=== PATIENT | male | born 1950 | race Hispanic/Latino ===

== ENCOUNTER 2022-04-19 16:43 | Emergency (ER) | payer OTHER ==
--- OUTSIDE RECORDS SUMMARY | 2022-04-19 16:47 | XMS REPORT | Continuity of Care Document ---
:1950 Author Organization [facility] t Address [address] [place] [address] Care Team Providers Name Role Phone Lew Ibarra Attending Clinician Unavailable Steve Zamudio Attending Clinician Unavailable Gregorio Estrella Attending Clinician Unavailable A_Byrd Attending Clinician Unavailable CAITLYN BEST Attending Clinician Unavailable KEMAL KUNZ Attending Clinician Unavailable BARBI SCOTT Attending Clinician Unavailable Zuniga_S Attending Clinician Unavailable A_Byrd Admitting Clinician Unavailable Zuniga_S Admitting Clinician Unavailable Payers Payer Name Policy Type Policy Number Effective Date Expiration Date S ource [facility] [id number] (MEDICARE REPLACEMENT/ADVANTAGE - PPO) Problems Condition Condition Condition Status Onset Resolution Last Treating Co mments Source Name Details Category Date Date Treatment Clinician Date Hiatal Hiatal Problem Active 2021-04 [place] hernia Hernia 2-29 da 00:00: Medical 00 Group Pain in Pain in Problem Active [facility] right Right 9-14 da thumb Thumb 00:00: Medical Group Pain in Pain in Problem Active [facility] left thumb Left Thumb 9-14 da 00:00: Medical Group Benign Benign Problem Active [place] essential Essential 4-28 da hypertensi Hypertensi 00:00: [place] dical on on Group Chronic Chronic Problem Active [place] cough Cough 7-31 da 00:00: Medical Group Urgent Urgent Problem Active [place] desire to Desire to 7-31 da urinate Urinate 00:00: Medical Group Abdominal Abdominal Problem Active [facility] pain Pain 7-31 da 00:00: Medical Group Influenza Influenza Problem Active [facility] 2-08 da 00:00: Medical 00 Group Benign Benign Problem Active [place] hypertensi Hypertensi da on on Medical Group Osteoarthr Osteoarthr Problem Active M [facility] itis of itis of da knee [facility]nee [facility] Moderate Moderate Problem Active [place] [facility] effusion Effusion da in knee in [facility] Right Right Problem Active [place] lower Lower da quadrant [facility] Med[facility] l pain Pain Group Knee pain Knee Pain Problem Active [facility] Primary Primary Problem Active [facility] insomnia Insomnia [facility] Glaucoma Glaucoma Problem Active [facility] Blindness Blindness Problem Active [facility] [place] of [facility] Allergies, Adverse Reactions, Alerts This patient has no known allergies or adverse reactions. Social History Smoking Status Start Date Stop Date Source Never Smoker [facility] Medications Ordered Filled Start Stop Current Ordering Indication Dosage Frequency Signature Comments Components Source Medication Medication Date Date Medication? Clinician (SIG) Name Name Aspir-81 No [facility] Combigan Combigan No Combigan [facility] [place] 0.2 %-0.5 % 0.2 %-0.5 % 0.2 %-0.5 da eye drops eye drops % eye Medi tom INSTILL 1 INSTILL 1 drops Grou p DROP INTO DROP INTO INSTILL 1 AFFECTED AFFECTED DROP INTO EYE(S) BY EYE(S) BY AFFECTED OPHTHALMIC OPHTHALMIC EYE(S) BY ROUTE EVERY ROUTE EVERY OPHTHALMIC 12 HOURS 12 HOURS ROUTE EVERY 12 HOURS diclofenac diclofenac No diclofenac [place] 1 % topical 1 % topical 1 % d a gel APPLY 2 gel APPLY 2 topical Medical GRAMS TO GRAMS TO gel APPLY Gr oup THE THE 2 GRAMS TO AFFECTED AFFECTED THE AREA(S) BY AREA(S) BY AFFECTED TOPICAL TOPICAL AREA(S) BY ROUTE 4 ROUTE 4 TOPICAL TIMES PER TIMES PER ROUTE 4 DAY DAY TIMES PER DAY diclofenac diclofenac No 1 BID diclofenac [place] sodium 75 sodium 75 sodium 75 da mg mg mg Medical tablet,kacie tablet,kacie tablet,del Group yed release yed release ayed Take 1 Take 1 release tablet tablet Take 1 twice a day twice a day tablet by oral by oral twice a route for route for day by 10 days. 10 days. oral route for 10 days. hydrochloro hydrochloro No hydrochlor [facility] thiazide 25 thiazide 25 othiazide da mg tablet mg tablet 25 mg Medi tom TAKE ONE TAKE ONE tablet Group (1) (1) TAKE ONE TABLET(S) TABLET(S) (1) BY MOUTH BY MOUTH TABLET(S) DAILY FOR DAILY FOR BY MOUTH HYPERTENSIO HYPERTENSIO DAILY FOR N. N. HYPERTENSI ON. losartan losartan No losartan [place] 100 mg 100 mg 100 mg da tablet TAKE tablet TAKE tablet Medical 1 TABLET BY 1 TABLET BY TAKE 1 Group MOUTH ONCE MOUTH ONCE TABLET BY DAILY DAILY MOUTH ONCE DAILY tamsulosin tamsulosin No tamsulosin [place] 0.4 mg 0.4 mg 0.4 mg da capsule capsule capsule Medica l TAKE 1 TAKE 1 TAKE 1 Group CAPSULE BY CAPSULE BY CAPSULE BY MOUTH EVERY MOUTH EVERY MOUTH DAY DAY EVERY DAY Schedule Schedule Schedule appt. with appt. with appt. with Dr. Bertha Stone for next for next for next refill refill refill amoxicillin amoxicillin No amoxicilli [place] 500 500 n 500 da mg-potassiu mg-potassiu mg-potassi Medical m m um Group clavulanate clavulanate clavulanat 125 mg 125 mg e 125 mg tablet TAKE tablet TAKE tablet 1 TABLET BY 1 TABLET BY TAKE 1 MOUTH TWICE MOUTH TWICE TABLET BY DAILY FOR DAILY FOR MOUTH UTI UTI TWICE DAILY FOR UTI Aspir-81 Aspir-81 No Aspir-81 [place] [facility] atorvastati atorvastati No atorvastat [place] n 40 mg n 40 mg in 40 mg da tablet TAKE tablet TAKE tablet Medical 1 TABLET BY 1 TABLET BY TAKE 1 Group MOUTH EVERY MOUTH EVERY TABLET BY DAY DAY MOUTH EVERY DAY brimonidine brimonidine No brimonidin [place] 0.2 0.2 e 0.2 da %-timolol %-timolol %-timolol Medical 0.5 % eye 0.5 % eye 0.5 % eye Group drops drops drops INSTILL 1 INSTILL 1 INSTILL 1 DROP IN DROP IN DROP IN RIGHT EYE RIGHT EYE RIGHT EYE TWICE DAILY TWICE DAILY TWICE DAILY diclofenac diclofenac No diclofenac [place] 1 % topical 1 % topical 1 % d a gel APPLY 2 gel APPLY 2 topical Medical GRAMS TO GRAMS TO gel APPLY Gr oup THE THE 2 GRAMS TO AFFECTED AFFECTED THE AREA(S) BY AREA(S) BY AFFECTED TOPICAL TOPICAL AREA(S) BY ROUTE 4 ROUTE 4 TOPICAL TIMES PER TIMES PER ROUTE 4 DAY DAY TIMES PER DAY diclofenac diclofenac No diclofenac [place] sodium 75 sodium 75 sodium 75 da mg mg mg Medical tablet,kacie tablet,kacie tablet,del Group yed release yed release ayed TAKE 1 TAKE 1 release TABLET BY TABLET BY TAKE 1 MOUTH TWICE MOUTH TWICE TABLET BY DAILY FOR DAILY FOR MOUTH 10 DAYS 10 DAYS TWICE DAILY FOR 10 DAYS losartan losartan No losartan [facility] [place] 100 mg 100 mg 100 mg da tablet TAKE tablet TAKE tablet Medical 1 TABLET BY 1 TABLET BY TAKE 1 Group MOUTH EVERY MOUTH EVERY TABLET BY DAY DAY MOUTH EVERY DAY ondansetron ondansetron No ondansetro [place] 4 mg 4 mg n 4 mg da disintegrat disintegrat disintegra Medical ing tablet ing tablet tin [place] up DISSOLVE 1 DISSOLVE 1 tablet TABLET ON TABLET ON DISSOLVE 1 THE TONGUE THE TONGUE TABLET ON EVERY 6 EVERY 6 THE TONGUE HOURS HOURS EVERY 6 NEEDED FOR NEEDED FOR HOURS NAUSEA OR NAUSEA OR NEEDED FOR VOMITING VOMITING NAUSEA OR VOMITING pantoprazol pantoprazol No pantoprazo [place] e 40 mg e 40 mg le 40 mg da tablet,kacie tablet,kacie tablet,del Medical yed release yed release ayed G roup release tamsulosin tamsulosin No 1capsul Q1D tamsulosin [facility] 0.4 mg 0.4 mg e(s) 0.4 mg da capsule capsule capsule Medica l Take 1 Take 1 Take 1 Group capsule capsule capsule every day every day every day by oral by oral by oral route. route. route. Immunizations Ordered Immunization Filled Immunization Date Status Commen ts Source Name Name influenza, influenza, 2015-03-12 Completed [place] injectable, injectable, 17:39:33 Medical Grou p quadrivalent, quadrivalent, preservative free preservative free influenza, influenza, 2015-03-12 Completed [place] injectable, injectable, 17:39:33 Medical Grou p quadrivalent, quadrivalent, preservative free preservative free Vital Signs Vital Name Observation Time Observation Value Comments Source BP Diastolic 2022-04-10 00:00:00 82 mm[Hg] [facility] Height 2022-04-10 00:00:00 66 [in_i] [facility] BMI (Body Mass 2022-04-10 00:00:00 35 kg/m2 [facility] Index) Group BP Systolic 2022-04-10 00:00:00 150 mm[Hg] [facility] Body Weight 2022-04-10 00:00:00 3470.4 [oz_av[facility] BP Diastolic 2021-12-25 00:00:00 68 mm[Hg] [facility] Height 2021-12-25 00:00:00 66 [in_i] [facility] BMI (Body Mass 2021-12-25 00:00:00 37 kg/m2 [facility] Index) Group BP Systolic 2021-12-25 00:00:00 154 mm[Hg] [facility] Body Weight 2021-12-25 00:00:00 3664 [oz_av] [facility] BP Diastolic 2021-08-08 00:00:00 83 mm[Hg] [facility] Height 2021-08-08 00:00:00 66 [in_i] [facility] BMI (Body Mass 2021-08-08 00:00:00 37.2 kg/m2 [facility] Index) Group BP Systolic 2021-08-08 00:00:00 180 mm[Hg] [facility] Body Weight 2021-08-08 00:00:00 3684.8 [oz_av] [facility] Procedures Procedure Date / Time Performing Clinician Source Performed XR, thumb 2021-12-25 00:00:00 [facility] Colonoscopy W/lesion 2015-04-13 00:00:00 [facility] Appendectomy [facility] Plan of Care Planned Activity Planned Date Details Comments Source Diagnostic Test 2021-12-25 uric acid, serum [facility] Pending 00:00:00 or plasma [code = Group uric acid, serum or plasma] Encounters Start End Encounter Admission Attending Care Care Encounter Source Date/Time Date/Time Type Type Clinicians Facility Department ID 2022-04-19 2022-04-19 Emergency ER Stacey, [facility] [id number] [place] 10:16:00 15:02:00 Lew -[id number] [facility] 2022-04-18 2022-04-18 Outpatient MITA Zamudio, [facility] [id number] [place] 11:08:00 11:08:00 Steve -[id number] [facility] 2022-04-17 2022-04-17 Outpatient MITA Estrella, [facility] [id number] [place] 15:15:00 15:15:00 Gregorio -[id number] [facility] 2022-04-10 2022-04-10 [facility] [id number] [place] 00:00:00 00:00:00 1229 [facility] 2022-04-10 2022-04-10 Lupe Urbina [facility] [place] - [id number] [facility] 00:00:00 00:00:00 MD Bertha: [facility] hernández [address] [place] [address] [facility] [address], [place] [address] , Ph. 2022-04-09 2022-04-09 Emergency E [facility] [address] [facility] 08:21:00 14:34:00 CAITLYN 2022-04-07 2022-04-07 Emergency ER KUNZ, [facility] [id number] [place] 09:42:00 14:36:00 ADIANES -[id number] [facility] 2022-04-04 2022-04-04 Emergency ER SONIA, [facility] [id number] [place] 20:27:00 22:21:00 BARBI -[id number] [facility] 2021-12-26 2021-12-26 Outpatient Zuniga_S [facility] [id number]- [id number] [place] 00:00:00 00:00:00 1228 [facility] 2021-12-25 2021-12-25 Outpatient Zuniga_S [facility] [id number]- 2021 [place] 00:00:00 00:00:00 0914 [facility] 2021-12-25 2021-12-25 Gema [facility] [place] - [id number] [facility] 00:00:00 00:00:00 Discovery edgar Farley RIB CHOPPER-C: [address] [facility] - [address] [place] [address] , Ph. 2021-08-08 2021-08-08 Outpatient A_Byrd [facility] [id number] [place] 03:07:00 03:07:00 0428 [facility] 2021-08-08 2021-08-08 Lupe Urbina [facility] [place] - [id number] M [facility] 00:00:00 00:00:00 MD Bertha: [facility] hernández [address] [facility] - [address] [place] [address] , Ph. 2021-08-07 2021-08-07 Outpatient A_Byrd [facility] [id number] [place] 09:40:00 09:40:00 0427 [facility] Results Test Description Test Time Test Comments Results Result Comments Source Comprehensive metabolic 2000 panel - Serum or Plasma 2021-07 01:10:00 Test Item Value Reference Range Interpretation Comme nts Glucose [Mass/volume] in Serum or Plasma (test code = 93 mg/dL 82-115 2345-7) Urea nitrogen [Mass/volume] in Serum or Plasma (test code = 12 mg/d L 8-23 3094-0) osmolality calculated,serum (test code = osmolality 270 mOsm/kg 28 0-300 L calculated,serum) creatinine (test code = creatinine) 0.86 mg/dL 0.70-1.20 glomerular filtration rate (test code = glomerular >60.00 filtration rate) Urea nitrogen/Creatinine [Mass Ratio] in Serum or Plasma 14.0 12.0-20.0 (test code = 3097-3) sodium level (test code = sodium level) 135 mmol/L 135-145 potassium level (test code = potassium level) 4.1 mmol/L 3.5-5.2 chloride level (test code = chloride level) 101 mmol/L 98-108 CO2 (test code = CO2) 25 mmol/L 21-32 anion gap (test code = anion gap) 13.1 mEq/L 12.0-20.0 calcium level (test code = calcium level) 9.0 mg/dL 8.8-10.2 total protein (test code = total protein) 7.0 g/dL 6.6-8.7 albumin (test code = albumin) 3.9 g/dL 3.5-5.2 globulin (test code = globulin) 3.1 g/dL 1.5-4.5 A/G ratio (test code = A/G ratio) 1.3 >1.0 bilirubin,total (test code = bilirubin,total) 0.6 mg/dL 0.0-1.2 AST/SGOT (test code = AST/SGOT) 16 U/L 15-40 Alanine aminotransferase [Enzymatic activity/volume] in 17 U/L 0-41 Serum or Plasma (test code = 1742-6) Alkaline phosphatase [Enzymatic activity/volume] in Serum 61 U/L 40-130 or Plasma (test code = 6768-6) [facility] W Auto Differential panel - [id number] 00:00:00 Test Item Value Reference Range Interpretation Comments white blood count (test code = 5.7 K/uL 4.0-12.3 white blood count) red blood count (test code = red 4.85 M/uL 3.80-5.80 blood count) hemoglobin (test code = 15.3 g/dL 11.7-17.2 hemoglobin) hematocrit (test code = 44.9 % 35.0-51.0 hematocrit) MCV [Entitic volume] (test code = 92.6 fL 83.0-100.0 78880-0) mean corpuscular hemoglobin (test 31.5 pg 26.8-33.4 code = mean corpuscular hemoglobin) mean corpuscular HGB conc (test 34.1 g/dL 30.0-35.0 code = mean corpuscular HGB conc) red cell distribution width (test 12.7 % 12.0-14.0 code = red cell distribution width) platelet count (test code = 207 K/uL 175-450 platelet count) mean platelet volume (test code = 10.0 fL 9.4-12.6 mean platelet volume) Segmented neutrophils/100 49.2 % 44.7-82.4 leukocytes in Blood (test code = 72164-3) Immature granulocytes [#/volume] 0.02 K/uL 0.00-0.03 in Blood (test code = 25973-3) lymphocyte% (test code = 38.0 % 10.0-50.0 lymphocyte%) mono % (test code = mono %) 7.7 % 3.9-13.4 eos % (test code = eos %) 4.2 % 0.0-6.4 Basophils/100 leukocytes in 0.5 % 0.2-1.2 Specimen (test code = 66283-9) Band form neutrophils [#/volume] 2.81 K/uL 1.78-5.38 in Blood (test code = 77292-8) Lymphocytes [#/volume] in Specimen 2.17 K/uL 1.32-3.57 by Automated count (test code = 12230-1) mono # (test code = mono #) 0.44 K/uL 0.30-0.82 eos # (test code = eos #) 0.24 K/uL 0.04-0.54 basophil # (test code = basophil 0.03 K/uL 0.01-0.08 #) NRBC% (test code = NRBC%) 0 /100 WBC 0-0.2 NRBC# (test code = NRBC#) 0 K/uL [facility], method unspecified - [id number] 00:00:00NeutrophilsBandLymphocyteAtypical LymphMonocyteEosinophilBasophilMetamyelocyteMyelocytePromyelocyteBlastsNucleated Red Blood CellDifferential CommentAbs Neutrophil Count (Man)Abs Lymph Count (Man)Abs Monocyte Count (Man)Abs Eosinophil Count (Man)Abs Basophil Count (Man)Platelet EstimatePlatelet Morphol ogyHypochromasiaPoikilocytosisAnisocytosisMicrocytosisMacrocytosisSpherocyteTarg et CellsTear Drop CellsOvalocytesStomatocyteToxic GranulationBurr CellsAcanthocytesHypersegmented PolysRouleauChoctaw Health Centerltrop T 2021-08-04 00:00:00 Test Item Value Reference Range Interpretation Comments Troponin T.cardiac [Presence] in Blood <0.011 0.000-0.011 (test code = 76878-4) [facility]
--- NOTE | 2022-04-19 17:32 | RAD REPORT ---
EXAM DESCRIPTION: RAD - Chest Single View - 04/19/2022 5:25 pm CLINICAL HISTORY: CHEST PAIN COMPARISON: No comparisons FINDINGS: Lines: None. Lungs: No evidence of edema or pneumonia. Pleural: No significant pleural effusions or pneumothorax. Cardiac: The heart size is within normal limits. Mediastinum: Within normal limits. Bones: No acute fractures. Other: None IMPRESSION: No acute cardiopulmonary disease.
[2022-04-19 18:00] LABS: Absolute Lymphocytes (CBC) 1.7 K/uL (0.7-4.9); Hematocrit 38.4 % (39.6-49.0); Lymphocytes % 16.1 % (15.3-44.8); MPV 7.4 fL (7.6-11.3); Protime INR 1.17; RBC Red Blood Cell Count 4.17 M/uL (4.33-5.43)
[2022-04-19 18:32] LABS: Albumin 2.8 g/dL (3.4-5.0); Bilirubin Direct 0.3 mg/dL (0-0.2); Bilirubin Total 0.7 mg/dL (0.2-1.0); Magnesium 2.2 mg/dL (1.6-2.4); Potassium 3.7 mmol/L (3.5-5.1); Protein, Total 7.7 g/dL (6.4-8.2); Troponin High Sensitivity 8.4 pg/mL (<58.9)
[2022-04-19] MEDS ORDERED: MAGNES/ALUMIN/SIMET 30ML UCUP ONE (19:12)
[2022-04-19] MEDS ORDERED: LIDOCAINE VISCOUS 2% SOLN 15 ML UDC ONE (19:12)
--- NOTE | 2022-04-19 19:28 | RAD REPORT ---
EXAM DESCRIPTION: CTAngio Aorta For Dissection - 04/19/2022 7:05 pm CLINICAL HISTORY: chest pain, abdominal pain, back pain, COMPARISON: No comparisons TECHNIQUE: CTA of the chest, abdomen, and pelvis was performed with IV contrast. MIPs reconstruction s were performed. All CT scans are performed using dose optimization technique as appropriate and may include automated exposure control or mA/KV adjustment according to patient size. FINDINGS: Thorax: Chest Wall: No abnormal mass Lungs: No acute abnormality. Pleura: No effusions or pneumothorax. Karly/Mediastinum: No lymphadenopathy. Aorta/Pulmonary Arteries: Saccular dilatation arising from the cul portion of the aortic arch consist ent with a pseudoaneurysm. This has a wide neck measures approximately 2.8 x 1.5 cm. It is partially calcified. Heart: Normal size. Coronary artery calcifications. Abdomen/Pelvis: Liver: Small hypervascular focus in the hepatic dome may represent a small flash fill hemangioma. Hep atic steatosis Biliary: No biliary ductal dilatation. Stomach: No significant focal abnormality. Duodenum: No significant focal abnormality. Pancreas: No significant abnormality. Spleen: No significant abnormality. Adrenal: No suspicious lesions. Kidney/ureter: No hydronephrosis. No renal calculi. Left lower pole renal cyst. Retroperitoneum: No retroperitoneal adenopathy. Vascular: See aorta above. Moderately calcified abdominal aorta. No abdominal aortic aneurysm. Bowel: No significant focal abnormality. Peritoneum: No ascites or free air. Small fat containing inguinal hernias. Bladder: Grossly unremarkable. Reproductive: Mild prostatomegaly. Bones: No acute fracture. Other: n/a IMPRESSION: 1. Saccular dilatation rising from the caudal aspect of the aortic arch consistent with a posttraumatic pseudoaneurysm, probably chronic. While no evidence of rupture, chest/back pain could indicate an unstable lesion. Recommend urgent vascular surgery consultation. Discussed with Megan carrasquillo by Dr. Tovar at 1921 on 04/19/22. 2. No other acute findings identified.
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
--- NOTE | 2022-04-19 20:04 | ER ---
Nurse's Notes [facility] Name: Dejon Lopez Age: 71 yrs Sex: Male : 1950 Arrival Date: 04/19/2022 Time: 16:44 Bed 8 Private MD: Gregorio Estrella Diagnosis: Thoracic aortic aneurysm, without rupture;Chest pain, unspecified Presentation: 04/19 16:58 Chief complaint: Spouse and/or significant other states: pt has been dx with a hiatal vg1 hernia about 1.5 weeks ago. Pt C/O of CP and back pain and epigastric pain x 2 weeks, stated "a little bit of SOB". States nausea, denies vomiting. Coronavirus screen: Vaccine status: Patient reports being unvaccinated. Client denies travel out of the [place] in the last 14 days. Ebola Screen: Patient negative for fever greater than or equal to 101.5 degrees Fahrenheit, and additional compatible Ebola Virus Disease symptoms. Initial Sepsis Screen: Does the patient meet any 2 criteria? No. Patient's initial sepsis screen is negative. Does the patient have a suspected source of infection? No. Patient's initial sepsis screen is negative. Risk Assessment: Do you want to hurt yourself or someone else? Patient reports no desire to harm self or others. Onset of symptoms was April 05, 2022. 16:58 Method Of Arrival: Ambulatory vg1 16:58 Acuity: RADHA 3 vg1 Triage Assessment: 17:01 General: Appears uncomfortable, Behavior is calm, cooperative. Pain: Complains of pain vg1 in back, chest and epigastric area Pain currently is 9 out of 10 on a pain scale. Cardiovascular: Patient's skin is warm and dry. GI: Reports nausea, Patient currently denies vomiting. Historical: - Allergies: 17:01 No Known Allergies; vg1 - Home Meds: 17:01 losartan oral [Active]; atorvastatin oral [Active]; Probiotics [Active]; vg1 - PMHx: 17:01 Legally Blind; Hypertensive disorder; Hypercholesterolemia; Hiatal Hernia; vg1 - Immunization history:: Client reports having NOT received the Covid vaccine. - Social history:: Smoking status: Patient denies any tobacco usage or history of. Screenin:44 [facility] ED Fall Risk Assessment (Adult) Score/Fall Risk Level 0 - 2 = Low Risk hb Oriented to surroundings, Maintained a safe environment. Abuse screen: Denies threats or abuse. Denies injuries from another. Nutritional screening: No deficits noted. Tuberculosis screening: No symptoms or risk factors identified. Assessment: 18:15 General: Appears in no apparent distress. uncomfortable, Behavior is calm, cooperative. hb Pain: Pain currently is 8 out of 10 on a pain scale. Neuro: Level of Consciousness is awake, alert, obeys commands, Oriented to person, place, time, situation. Cardiovascular: Reports chest pain, Patient's skin is warm and dry. Rhythm is regular. Respiratory: Respiratory effort is even, unlabored, Respiratory pattern is regular, symmetrical. GI: No signs and/or symptoms were reported involving the gastrointestinal system. : No signs and/or symptoms were reported regarding the genitourinary system. EENT: No signs and/or symptoms were reported regarding the EENT system. Derm: Skin is pink, warm \\T\\ dry. Musculoskeletal: No signs and/or symptoms reported regarding the musculoskeletal system. 19:45 General: assisted pt to bathroom via wheelchair. updated pt on plan of care, no as6 complaints or concerns at this time. 19:52 Reassessment: Patient and/or family updated on plan of care and expected duration. Pain ha1 level reassessed. Patient is alert, oriented x 3, equal unlabored respirations, skin warm/dry/pink. General: Appears comfortable, Behavior is calm, cooperative. Neuro: Level of Consciousness is awake, alert, obeys commands, Oriented to person, place, time, situation. Cardiovascular: Patient's skin is warm and dry. Respiratory: Respiratory effort is even, unlabored, Respiratory pattern is regular, symmetrical. GI: No signs and/or symptoms were reported involving the gastrointestinal system. Abdomen is non-distended, obese. GI: No signs and/or symptoms were reported involving the gastrointestinal system. Derm: Skin is pink, warm \\T\\ dry. Musculoskeletal: No signs and/or symptoms reported regarding the musculoskeletal system. 20:47 Reassessment: Patient and/or family updated on plan of care and expected duration. Pain ha1 level reassessed. Patient is alert, oriented x 3, equal unlabored respirations, skin warm/dry/pink. awaiting transfer. 22:18 Reassessment: Patient appears in no apparent distress at this time. Patient and/or as6 family updated on plan of care and expected duration. Pain level reassessed. Patient is alert, oriented x 3, equal unlabored respirations, skin warm/dry/pink. pt visiting with family. Vital Signs: 16:58 BP 134 / 66; Pulse 82; Resp 18; Temp 98.8(TE); Pulse Ox 98% on R/A; Weight 99.79 kg; vg1 Height 5 ft. 6 in. (167.64 cm); Pain 9/10; 18:44 BP 158 / 72; Pulse 75; Resp 15; Pulse Ox 99% on R/A; Pain 5/10; hb 19:46 BP 164 / 72; Pulse 84; Resp 20 S; Pulse Ox 100% on R/A; as6 20:48 BP 133 / 70; Pulse 79; Resp 18 S; Pulse Ox 98% on R/A; ha1 22:17 BP 160 / 70; Pulse 81; Resp 21 S; Temp 98.2(O); Pulse Ox 99% on R/A; as6 23:44 BP 171 / 73; Pulse 81; Resp 18 S; Pulse Ox 100% on R/A; as6 16:58 Body Mass Index 35.51 (99.79 kg, 167.64 cm) vg1 ED Course: 16:44 Patient arrived in ED. as 16:45 Gregorio Estrella MD is Private Physician. as 16:52 [facility] 16:52 Mane Grider MD is Attending Physician. [facility] 17:01 Triage completed. vg1 17:01 Arm band placed on. vg1 17:27 XRAY Chest (1 view) In Process Unspecified. EDMS 17:54 Initial lab(s) drawn, by wi, sent to lab. Inserted saline lock: 20 gauge in right jl7 forearm, using aseptic technique. Blood collected. Patient maintains SpO2 saturation greater than 95% on room air. 18:01 Kenia Long, RADHA is Primary Nurse. hb 18:44 Patient has correct armband on for positive identification. hb 19:07 CT Aorta for Dissection In Process Unspecified. EDMS 20:08 Initiated transfer to [facility] per Pt request, spoke with Amadou. wm 20:34 Primary Nurse role handed off by Kenia Lnog, RN wm 20:46 Zaira Artis, RADHA is Primary Nurse. ha1 20:51 Attending Physician role handed off by Mane Grider MD sd2 20:51 Gema Leonard MD is Attending Physician. sd2 22:11 Pt accepted for transfer by Sohan Barnhart per Amadou Leonard. wm 22:21 Called [facility] for transport, [id number]. 23:45 No provider procedures requiring assistance completed. Patient transferred, IV remains as6 in place. Administered Medications: 19:10 Drug: GI Cocktail without - (Maalox Suspension 30 ml, Lidocaine Liquid 2 % 15 as6 ml) Route: PO; 23:45 Follow up: Response: No adverse reaction as6 Medication: 18:44 VIS not applicable for this client. hb Outcome: 20:04 ER care complete, transfer ordered by . [facility] 23:45 Transferred by ground EMS to [facility], Transfer form completed. X-rays sent as6 w/ patient. 23:45 Condition: stable 23:45 Instructed on the need for transfer. 23:50 Patient left the ED. as6 Signatures: Dispatcher [employer] EDMS Destin Montes PA PA Alyssa Real as Kenia Long, RN RADHA Robin Hoyos RN RN [email or web address] Abbie Carr RN RN vg1 Karmen Gimenez Rich Vargas RN RN as6 Gema Leonard MD MD az2 Zaira Artis, RN RN ha1 Corrections: (The following items were deleted from the chart) 17:03 16:58 Chief complaint: Spouse and/or significant other states: pt has been dx with a vg1 hiatal hernia about 1.5 weeks ago. C/O of CP and back pain x 2 weeks, stated "a little bit of SOB". States nausea, denies vomiting. vg1
[2022-04-19 21:00] LABS: SARS-CoV-2 Antigen Rapid Res Negative (Negative)
[2022-04-20 01:06] VITALS: TEMP 98.2
[2022-04-20 01:07] VITALS: BP 171/73; O2SAT 100
--- NOTE | 2022-04-21 16:30 | EKG ---
Test Date: 2022-04-19 Test Time: 17:58:59 [employer]: HB MEASUREMENT RESULTS: Intervals: Rate: 76 ME: 148 QRSD: 94 QT: 416 QTc: 468 Four States: P: 15 ME: 148 QRS: 4 T: 65 INTERPRETIVE STATEMENTS: Normal sinus rhythm Normal ECG No previous ECG available for comparison Electronically Signed On 04-21-22 16:28:07 [employer] by Neftali Bravo
== END 2022-04-19 23:50 | disposition short-term general hospital (02) ==
LOC: ER 16:43
DX: R07.89 Other chest pain (principal); I71.20 Thoracic aortic aneurysm, without rupture, unspecified; I10 Essential (primary) hypertension; E78.00 Pure hypercholesterolemia, unspecified; Z20.822 Contact with and (suspected) exposure to COVID-19
CPT/HCPCS: 93005; 85025; 80048; 36415; 83735; 85610; 80076; 84484; 83880; 71275; 74175; 71045; 99285; 87811; Q9967